=== PATIENT | female | born 1960 | race Two or more races ===

== ENCOUNTER 2016-06-07 12:49 | Emergency (ER) | payer OTHER, MEDICAID ==
[~2016-06-07] VITALS: Ht 157.5 cm; Wt 62.6 kg
[~2016-06-07 12:49] MED LIST: ASPI81TA13 OR; BENA40TA2 OR; METF-314 OR; PREMPRO; TRIA50CA40 OR
[2016-06-07 14:46] VITALS: BP 145/96
== END 2016-06-07 15:25 | disposition home or self-care (01) ==
LOC: EDBD 12:49 → ER 12:55
DX: S20.211A Contusion of right front wall of thorax, initial encounter (principal); S80.01XA Contusion of right knee, initial encounter; S50.01XA Contusion of right elbow, initial encounter; E11.9 Type 2 diabetes mellitus without complications; I10 Essential (primary) hypertension; Z79.82 Long term (current) use of aspirin; Z79.899 Other long term (current) drug therapy; Z88.8 Allergy status to other drugs, medicaments and biological substances; Z90.710 Acquired absence of both cervix and uterus; V43.52XA Car driver injured in collision with other type car in traffic accident, initial encounter; Y93.89 Activity, other specified; Y92.238 Other place in hospital as the place of occurrence of the external cause; Y99.8 Other external cause status
CPT/HCPCS: 71010; 73070; 73560; 93005

== ENCOUNTER 2016-10-27 18:31 | Emergency (ER) | payer OTHER, MEDICAID ==
[~2016-10-27] VITALS: Ht 157.5 cm; Wt 65.8 kg
[~2016-10-27 18:31] MED LIST changes: -BENA40TA2 OR; +BENA40TA7 OR; -METF-314 OR; +METF-371 OR
[2016-10-27 20:00] VITALS: BP 159/56
[2016-10-27] MEDS ORDERED: KETOROLAC TROMETH 60MG/2ML VIAL IM ONE ×2 (21:30)
== END 2016-10-27 21:38 | disposition home or self-care (01) ==
LOC: ER 18:40
DX: S93.401A Sprain of unspecified ligament of right ankle, initial encounter (principal); E11.9 Type 2 diabetes mellitus without complications; I10 Essential (primary) hypertension; Z88.8 Allergy status to other drugs, medicaments and biological substances; X50.0XXA Overexertion from strenuous movement or load, initial encounter; Y93.89 Activity, other specified; Y99.8 Other external cause status; Y92.89 Other specified places as the place of occurrence of the external cause
CPT/HCPCS: 29515; 73610; 96372; 99284; J1885

== ENCOUNTER 2023-03-26 13:20 | Emergency (ER) | payer OTHER, MEDICAID ==
[~2023-03-26] VITALS: Ht 167.6 cm; Wt 64.0 kg
[~2023-03-26 13:20] MED LIST changes: +ASPI1TAB19 OR; -ASPI81TA13 OR; -BENA40TA7 OR; +BENA40TA70 OR
[2023-03-26 14:00] VITALS: PULSE 96; RESP 19; O2SAT 97
[2023-03-26] MEDS ORDERED: TENECTEPLASE 50mg/10ml KIT IV ONE (14:15)
[2023-03-26 14:16] LABS: Basophils # (auto) 0 10 ^3/uL (0-0.2); Basophils % (auto) 0.6 % (0.0-2.0); Eosinophils # (auto) 0.4 10 ^3/uL (0-0.8); Eosinophils % (auto) 4.5 % (0.0-7.0); Hematocrit 41.3 % (36.0-46.0); Hemoglobin 13.8 g/dL (12.2-16.2); Lymphocytes # (auto) 2.5 10 ^3/uL (0.4-5.4); Mean Corpuscular Hemoglobin 29.7 pg (28.0-32.0); Mean Corpuscular Hgb Conc. 33.4 g/dL (32.0-36.0); Monocytes # (auto) 0.4 10 ^3/uL (0-1.3); Monocytes % (auto) 4.9 % (0.0-12.0); Neutrophils # (auto) 5.2 10 ^3/uL (1.6-8.6); Nucleated Red Blood Cells % 0.1 %; Red Blood Cells 4.64 10^6/uL (4.0-5.20); Red Cell Distribution Width 13.2 % (11.8-14.3); White Blood Cell 8.5 10^3/uL (4.4-10.8)
[2023-03-26 14:23] LABS: Alanine Aminotransferase 30 U/L (7-40); Alkaline Phosphatase 65 U/L (46-116); Anion Gap 10 (5-15); Aspartate Aminotransferase 37 U/L (13-40); BUN/Creatinine Ratio 18.7 (10.0-20.0); Bilirubin, Total 0.8 mg/dL (0.2-1.0); Blood Urea Nitrogen 14 mg/dL (9-23); Calcium 10.2 mg/dL (8.5-10.1); Carbon Dioxide 26 mmol/L (20-30); Chloride 101 mmol/L (98-107); Glucose 257 mg/dL (74-106); Potassium 4.5 mmol/L (3.5-5.1); Sodium 137 mmol/L (136-145); Total Protein 7.1 g/dL (5.7-8.2)
[2023-03-26 14:24] LABS: INR 1.01 (0.9-1.15); Prothrombin Time 10.6 sec (9.3-11.8)
[2023-03-26 15:18] LABS: Magnesium 1.9 mg/dL (1.6-2.6)
[2023-03-26 15:36] VITALS: BP 161/83; PULSE 100; RESP 18; TEMP 97.7; O2SAT 96
== END 2023-03-26 15:48 ==
LOC: ER 13:20
DX: I63.9 Cerebral infarction, unspecified (principal); R47.01 Aphasia; I10 Essential (primary) hypertension; E78.5 Hyperlipidemia, unspecified; E11.9 Type 2 diabetes mellitus without complications
CPT/HCPCS: 36415; 70450; 71045; 80053; 83735; 83880; 84484; 85025; 85610; 85730; 93005; 96374; 99291; J3101

== ENCOUNTER 2023-07-15 23:50 | Emergency (ER) | payer OTHER, MEDICAID ==
[~2023-07-15] VITALS: Ht 157.5 cm; Wt 72.5 kg
[2023-07-16 03:12] VITALS: BP 172/59; PULSE 61; RESP 16; TEMP 98; O2SAT 94
== END 2023-07-16 03:12 | disposition home or self-care (01) ==
LOC: EDBD 23:50 → ER 23:50
DX: R51.9 Headache, unspecified (principal); I10 Essential (primary) hypertension; E11.9 Type 2 diabetes mellitus without complications; E78.5 Hyperlipidemia, unspecified; Z90.710 Acquired absence of both cervix and uterus; Z88.6 Allergy status to analgesic agent
CPT/HCPCS: 70450; 93005